=== PATIENT | female | born 1945 | race Caucasian/White ===

== ENCOUNTER 2018-01-30 16:10 | Emergency (ER) | payer MEDICARE ==
[2018-01-30 19:31] LABS: ABS Basophils 0.1 10^3/ul (0-0.2); ABS Eosinophils 0.2 10^3/ul (0-0.6); ABS Lymphocytes 2.8 10^3/ul (1.0-4.8); ABS Monocytes 0.6 10^3/ul (0-0.8); ABS Neutrophils 5.5 10^3/ul (1.5-7.7); ABS Nucleated RBC 0 10^3/ul; Eosinophil % 1.7 % (0-6); Hematocrit 34 % (35-47); Hemoglobin 11.7 g/dl (12.0-16.0); Lymphocyte % 30.6 % (25-47); Mean Corpuscular HGB Conc 35 g/dl (31-36); Mean Corpuscular Hemoglobin 31 pg (27-31); Mean Corpuscular Volume 88 fL (80-97); Mean Platelet Volume 7 um3 (7.4-10.4); Nucleated Red Blood Cells % 0; Platelet Count 387 10^3/ul (150-450); Red Blood Count 3.82 10^6/ul (4.0-5.4); Red Cell Distribution Width 14 % (10.5-15); White Blood Count 9.1 10^3/ul (3.5-10.8)
[2018-01-30 19:48] LABS: EGFR Non-African American 32.2 (>60)
[2018-01-30] MEDS ORDERED: NS 0.9% 1000 ML* 1,000 ML IV SCH (20:45)
[2018-01-30 21:04] LABS: Urine Appearance Clear; Urine Blood Negative (Negative); Urine Color Yellow; Urine Ketones Negative (Negative); Urine Protein Negative (Negative); Urine Specific Gravity 1.009 (1.010-1.030); Urine Urobilinogen Negative (Negative)
--- NOTE | 2018-01-30 21:16 | RAD ---
Indication: Epigastric pain. 2 views of the chest including dual energy PA views demonstrates no mediastinal shift. Heart is of normal size and configuration. Lung baker appear clear. IMPRESSION: No active cardiopulmonary disease is noted.
--- NOTE | 2018-01-30 21:37 | RAD ---
Indication: Right upper quadrant pain. Real-time sonography of the right upper quadrant was performed. The liver is normal in size. The liver measures 18.0 cm in length with no focal lesions or intrahepatic ductal dilatation noted. The gallbladder demonstrates 2.1 cm gallstone. No pericholecystic fluid or wall thickening is identified. The common duct measures up to 4 mm. The right kidney measures 9.5 x 4.6 x 3.9 cm with no hydronephrosis. The pancreas demonstrates no mass or pancreatic ductal dilatation. Aorta and inferior vena cava are unremarkable. IMPRESSION: Cholelithiasis without biliary ductal dilatation.
--- NOTE | 2018-01-30 22:28 | ED ---
Iker Avery Stephanie, scribed for Denis Santiago MD on 01/30/18 at 1919 . Abdominal Pain/Female - HPI Summary HPI Summary: The pt is a 72 y/o F presenting to the ED with c/o RUQ pain that began on . Symptoms include nausea and chills. The pt states her abd pain feels like squeezing. The pt denies fever and SOB. - History of Current Complaint Chief Complaint: EDAbdPain Stated Complaint: ABD PAIN Time Seen by Provider: 01/30/18 19:14 Hx Obtained From: Patient Hx Last Menstrual Period: N/A ?: No Onset/Duration: Gradual Onset Timing: Intermittent Episode Lasting Pain Intensity: 2 Pain Scale Used: 0-10 Numeric Location: Discrete At: RUQ Radiates: No Character: Other: - squeezing Aggravating Factor(s): Nothing Alleviating Factor(s): Nothing Associated Signs and Symptoms: Positive: Nausea, Other: - chills, Negative: SOB. Negative: Fever Allergies/Adverse Reactions: Allergies Allergy/AdvReac Type Severity Reaction Status Date / Time Iodinated Contrast- Oral and Allergy Swelling Verified 01/01/18 12:46 IV Dye Of Face,Lips,& Throat Home Medications: Home Medications Amlodipine/Atorvastatin [Amlodipine Besylate/Atorv 10-10 mg] 1 tab PO DAILY 05/14 [History Confirmed 01/30/18] Carvedilol TAB* [Coreg TAB*] 3.125 mg PO BID 01/30/18 [History Confirmed ] Dulaglutide (NF) [Trulicity (NF)] 0.75 mg SUBCUT WEEKLY 01/30/18 [History Confirmed 01/30/18] Fluticasone/Vilanterol MDI(NF) [Breo Ellipta MDI (NF)] 1 puff INH DAILY [History Confirmed 01/30/18] Quinapril/Hydrochlorothiazide [Quinapril/Hydrochlorothia 20-25 mg] 1 tab PO DAILY 01/30/18 [History Confirmed 01/30/18] PMH/Surg Hx/FS Hx/Imm Hx Endocrine/Hematology History: Reports: Hx Diabetes - type 2 Denies: Hx Thyroid Disease Cardiovascular History: Reports: Hx Hypertension Denies: Hx Pacemaker/ICD Respiratory History: Reports: Hx Asthma Denies: Hx Chronic Obstructive Pulmonary Disease (COPD) GI History: Denies: Hx Ulcer History: Denies: Hx Renal Disease Sensory History: Denies: Hx Hearing Aid Psychiatric History: Denies: Hx Panic Disorder - Surgical History Surgery Procedure, Year, and Place: tubal ligatiuon 1970. CATARACT RIGHT EYE Infectious Disease History: No Infectious Disease History: Denies: Hx Hepatitis, Hx Human Immunodeficiency Virus (HIV), Traveled Outside the [place] in Last 30 Days - Family History Known Family History: Positive: Hypertension, Diabetes - Social History Occupation: Retired Lives: Alone Alcohol Use: Rare Substance Use Type: Reports: None Smoking Status (MU): Never Smoked Tobacco Review of Systems Positive: Chills. Negative: Fever Negative: Shortness Of Breath Positive: Abdominal Pain, Nausea All Other Systems Reviewed And Are Negative: Yes Physical Exam - Summary Physical Exam Summary: Appearance: Well-appearing, Well-nourished Skin: Warm, Dry, No rash Eyes: Normal, PERRL, EOMI, sclera anicteric ENT: Normal Neck: Supple, nontender Respiratory: Clear to auscultation Cardiovascular: S1, S2, no murmur, no rub, no gallop Abdomen: Soft, RUQ tenderness, no organomegaly Bowel sounds: Present Musculoskeletal: Normal, Strength/ROM Intact, no edema, pulses symmetrical Neurological: Normal, A&Ox3, cranial nerves II-XII WNL, follows commands, gait not tested, sensation intact to pin and light touch Psychiatric: affect normal, behavior appropriate, dressed appropriately, judgment intact Triage Information Reviewed: Yes Vital Signs On Initial Exam: Initial Vitals Temp Pulse Resp BP Pulse Ox 99.2 F 95 18 197/73 97 01/30/18 16:12 01/30/18 16:12 01/30/18 16:12 01/30/18 16:12 01/30/18 16:12 Vital Signs Reviewed: Yes Diagnostics - Vital Signs Vital Signs Temp Pulse Resp BP Pulse Ox 01/30/18 19:04 98.1 F 109 20 172/70 95 01/30/18 16:12 99.2 F 95 18 197/73 97 - Laboratory Result Diagrams: 01/30/18 19:21 01/30/18 19:21 Lab Statement: Any lab studies that have been ordered have been reviewed, and results considered in the medical decision making process. - Radiology CXR Xray Interpretation: No Acute Changes Radiology Interpretation Completed By: Radiologist - No active cardiopulmonary disease is noted. ED physician has reviewed this imaging report and agrees. - EKG 19:23 Cardiac Rate: NL EKG Rhythm: Sinus Rhythm - [address] Segment: Normal Ectopy: None EKG Interpretation: Low voltage - Additional Comments Diagnostic Additional Comments: US Gallbladder reveals: Cholelithiasis without biliary ductal dilatation. ED physician has reviewed this imaging report and agrees. Abdominal Pain Fem Course/Dx - Course Course Of Treatment: No additional pain while in the ED. No N/V. ED physician explained to the pt the nature of her illness and referred her to Dr. Rivero. - Diagnoses Provider Diagnoses: Symptomatic cholelithiasis Discharge - Discharge Plan Condition: Good Disposition: HOME Discharge Disposition Comment: discharge to home Patient Education Materials: Biliary Colic (ED), Gallstones (ED), Acute Nausea and Vomiting (ED) Referrals: Pasha Barrera MD [Primary Care Provider] - Dean Rivero MD [Medical Doctor] - 1 Week The documentation as recorded by the Iker murdock Stephanie accurately reflects the service I personally performed and the decisions made by me, Denis Santiago MD.
[2018-01-30 23:03] VITALS: BP 152/63
[2018-01-30] MEDS ORDERED: nitroGLYCERIN DRIP* 25,000 MCG/250 ML BTL ONE (23:56)
== END 2018-01-30 23:13 | disposition home or self-care (01) ==
LOC: ED 16:10
DX: K80.80 Other cholelithiasis without obstruction (principal); R11.0 Nausea; R68.83 Chills (without fever); E11.8 Type 2 diabetes mellitus with unspecified complications; Z79.4 Long term (current) use of insulin; I10 Essential (primary) hypertension; J45.909 Unspecified asthma, uncomplicated; Z91.041 Radiographic dye allergy status
CPT/HCPCS: 36415; 71046; 76705; 80053; 81003; 81015; 83690; 85025; 87086; 93005; 96360; 99284

== ENCOUNTER 2018-05-23 08:41 | Day surgery (SDC) | payer MEDICARE ==
[~2018-05-23 08:41] MED LIST: Buffered Lidocaine 0.9% SYRIN* 5 ML/SYR SYRINGE INTRADERM ONE
[2018-05-23] MEDS ORDERED: Phenylephrine 2.5% OPTH.SOL* 2 ML BTL ONE (10:58)
[2018-05-23] MEDS ORDERED: Proparacaine 0.5% OPHTH.SOL* 15 ML BTL ONE (10:58)
[2018-05-23] MEDS ORDERED: Lidocaine 1%* 5 ML VIAL ONE (10:58)
[2018-05-23] MEDS ORDERED: Cyclopentolate 1% OPTH.SOL* 2 ML BTL ONE (10:58)
[2018-05-23] MEDS ORDERED: Neomycin/Polymy/Dex OPTH.SUSP* MAXITROL 0.1% 5 ML ONE (10:58)
[2018-05-23] MEDS ORDERED: Lidocaine 2% EPI 1:200000 MPF*10-20 ML VIAL ONE (10:58)
[2018-05-23] MEDS ORDERED: acetaZOLAMIDE TAB* 250 MG ONE (10:58)
[2018-05-23] MEDS ORDERED: Ketorolac 0.5% OPHTH (NF) 0.5 % 5 ML BTL ONE (10:58)
[2018-05-23] MEDS ORDERED: Povidone Iodine 5% OPTH* 30 ML BTL ONE (10:58)
[2018-05-23] MEDS ORDERED: Lidocaine 2% MPF* 2 ML VIAL ONE (10:59)
[2018-05-23] MEDS ORDERED: Propofol* 10 MG/ML 20 ML BTL IV PUSH ONE (10:59)
[2018-05-23] MEDS ORDERED: hydrALAZINE IV* 20 MG/ML VIAL ONE (11:14)
[2018-05-23 11:32] VITALS: BP 146/53
--- NOTE | 2018-05-23 11:56 | OP ---
DATE OF OPERATION: 05/23/2018. DATE OF : 1945. SURGEON: Hasmukh Smalls M.D. PREOPERATIVE DIAGNOSIS: Cataract left eye. POSTOPERATIVE DIAGNOSIS: Cataract left eye. OPERATIVE PROCEDURE: Extracapsular cataract extraction with intraocular lens implant left eye. PROCEDURE: The patient was brought to the operating room after being given 1/2% Alcaine with epineph rine drops in the preoperative area. The eye was prepped and draped in the usual sterile fashion. S terile drape and eyelid speculum were placed. Again, topical 1/2% Alcaine with epinephrine was given . A paracentesis incision was made at the 3 o'clock position with the No.75 blade. Clear cornea inc ision 2.2 x 2.2-mm was created at the 6 o'clock position starting at the anterior limbus using the 2. 2-mm keratome. The anterior chamber was irrigated with 0.4 mL of 1% non-preservative intracameral li docaine and filled with DisCoVisc. A capsulorrhexis was completed using the cystotome and the Utrata forceps. Hydrodissection was performed with balanced salt solution. The lens nucleus was removed wi th the Phacoemulsification handpiece without incident. Cortex was removed with the irrigation-aspira tion handpiece. The capsular bag was re-inflated using DisCoVisc and an SN60WF 21.5 implant was inse rted with the shooter. The irrigation-aspiration handpiece was used to remove all residual DisCoVisc . The eye was refilled with balanced salt solution and the wound checked and found to be watertight. Topical Maxitrol drops were given. [id number]/[facility] #: [id number]
== END 2018-05-23 11:47 | disposition home or self-care (01) ==
LOC: OREAST 08:41
PROVIDERS: ATTEND Specialist
DX: H25.812 Combined forms of age-related cataract, left eye (principal); E11.3293 Type 2 diabetes mellitus with mild nonproliferative diabetic retinopathy without macular edema, bilateral; Z79.84 Long term (current) use of oral hypoglycemic drugs; Z79.4 Long term (current) use of insulin; H26.491 Other secondary cataract, right eye; E03.9 Hypothyroidism, unspecified; I10 Essential (primary) hypertension; E78.5 Hyperlipidemia, unspecified; D46.9 Myelodysplastic syndrome, unspecified
CPT/HCPCS: A9270-GY; J0360; J2704; V2632

== ENCOUNTER 2020-03-05 12:53 | Emergency (ER) | payer MEDICARE, OTHER ==
--- OUTSIDE RECORDS SUMMARY | 2020-03-05 13:15 | XMS REPORT | Summary of Care ---
:1945 Author Organization [facility] Address [address] [facility] [place] [address] Care Team Providers Name Role Phone Pasha Barrera Primary Care Provider Hasmukh Smalls MD Primary Organ Pipe Voicer/Insert Molding Operator Amirah Gibbs RN Signallamp Termination Clerk Unavailable Reason for Visit Reason Comments Fall on Tues, stepped off a scale and foot turned causing the fall in the bathroom, then last night left leg gave out and pt fell again ([facility] came but pt was not taken to ER) Encounter Details Date Type Department Care Team Description 03/05/2020 Office Visit [place] Chantal Walters, Foot pain, left ( Primary Dx); Practice [facility] Hip pain, acute, left; [address] [facility] Uncomplicated asthma, unspecified asthma severity, unspecified whether persistent [place], [place] [id number] [place] [address] [phone] Allergies Active Allergy Reactions Severity Noted Date Comments Ct Dye Swelling 04/17/2008 Dulaglutide Rash, GI Reaction, 03/06/2018 Caused severe abdominal Swelling pain documented as of this encounter (statuses as of 03/05/2020) Medications Medication Sig Dispensed Refills Start End Status Date Date TYLENOL PO Take 1-2 Tabs by 0 Active mouth NEEDED. [id number]-[id number] Take 1 Tab by 0 Active INC PO mouth EVERY MORNING. BLOOD GLUCOSE TEST 1. Brand:free style freedom 100 5 01/07/20 Active STRIPS 2. Dx:250.00 10 STRPIndications: 3. non-Insulin dependent Diabetes mellitus 4. Test Blood Glucose 1 time(s) A DAY type II Ascorbic Acid Take 1 Tab by 0 Active (VITAMIN C PO) mouth EVERY MORNING. Cyanocobalamin Take 1 Tab by 0 Active (VITAMIN B 12 PO) mouth THREE TIMES PER WEEK. Cholecalciferol Take 1 Tab by 0 Active (VITAMIN D) 2000 mouth DAILY. units Oral Tab PROAIR HFA 108 (90 inhale 2 puffs by 8.5 g 5 04/15/20 Active Base) MCG/ACT mouth four times a 19 Inhalation Aero day Soln BD PEN NEEDLE LIZ use as directed 100 Each 3 06/11/20 Active U/F 32G X 4 MM Does 19 not apply Misc meclizine Take 1 Tab by 45 Tab 0 07/18/20 Active (ANTIVERT) 25 MG mouth THREE TIMES 19 Oral Tab DAILY NEEDED for dizziness/vertigo. torsemide (DEMADEX) Take 1 Tab by 90 Tab 0 09/16/20 Active 10 MG Oral Tab mouth DAILY 19 NEEDED (edema). triamcinolone Apply to affected 80 g 0 10/21/20 Active (KENALOG,ARISTOCORT area on legs 2 x a 19 ) 0.1 % Apply day externally Cream Insulin Glargine inject 30 units 30 mL 0 10/21/20 Active (BASAGLAR KWIKPEN) subcutaneously 19 100 UNIT/ML once daily at Subcutaneous bedtime Solution Pen-injector albuterol HFA INHALE 2 PUFFS BY 54 g 0 11/22/20 Active (VENTOLIN) 108 (90 MOUTH FOUR TIMES A 19 Base) MCG/ACT DAY Inhalation Aero Soln levothyroxine TAKE 1 TABLET BY 90 Tab 0 12/10/19 Active (SYNTHROID\\UNITHROI MOUTH BEFORE 20 D) 100 MCG Oral Tab BREAKFAST sitagliptin Take 1 Tab by 90 Tab 0 12/30/19 Active (JANUVIA) 50 MG mouth DAILY. 20 Oral Tab carvedilol (COREG) Take 1 Tab by 180 Tab 0 02/10/20 Active 12.5 MG Oral Tab mouth TWICE DAILY. 20 quinapril Take 1 Tab by 90 Tab 0 02/10/20 Active (ACCUPRIL) 20 MG mouth DAILY. 20 Oral Tab atorvastatin Take 1 Tab by 90 Tab 3 02/10/20 Active (LIPITOR) 10 MG mouth DAILY. 20 Oral Tab Insulin NPH Inject 20 Units 30 mL 0 02/10/20 Active Isophane & Regular beneath the skin 20 (HUMULIN 70/30 EVERY MORNING. KWIKPEN) (70-30) 100 UNIT/ML Subcutaneous Suspension Pen-injector hydrALAZINE Take 1 Tab by 270 Tab 0 02/10/20 Active (APRESOLINE) 25 MG mouth TWICE DAILY. 20 Oral Tab glipiZIDE Take 1 Tab by 180 Tab 0 02/12/20 Active (GLUCOTROL) 10 MG mouth TWICE DAILY. 20 Oral Tab Glucose Blood (ONE 1 Each by In Vitro 100 Strip 5 02/12/20 Active TOUCH ULTRA TEST route TWICE DAILY. 20 STRIPS) In Vitro E11.65 last OV Strip 02/10/20 Lancets Does not by Does not apply 100 Each 3 02/12/20 Active apply Misc route TWICE DAILY. 20 Brand:One Touch Ultra Two Dx E11.65 Last visit 02/10/20 Fluticasone Take 1 INHL by 3 Each 2 03/05/20 Active Furoate-Vilanterol inhalation DAILY. 20 (BREO ELLIPTA) 100-25 MCG/INH Inhalation AEROSOL POWDER, BREATH ACTIVATEDIndication s: Uncomplicated asthma, unspecified asthma severity, unspecified whether persistent Fluticasone Take 1 INHL by 3 Each 2 01/04/20 Discontinued Furoate-Vilanterol inhalation DAILY. 19 020 (Reorder) (BREO ELLIPTA) 100-25 MCG/INH Inhalation AEROSOL POWDER, BREATH ACTIVATEDIndication s: Uncomplicated asthma, unspecified asthma severity, unspecified whether persistent documented as of this encounter (statuses as of 03/05/2020) Active Problems Problem Noted Date Tachy-steffany syndrome 05/10/2018 Moderate persistent asthma without complication 04/05/2017 Peripheral edema 04/02/2017 Diabetes mellitus, type 2 04/17/2008 Myelodysplasia (myelodysplastic syndrome) 04/17/2008 Hypertension 04/17/2008 Hypothyroid 04/17/2008 Hyperlipidemia 04/17/2008 Heart murmur 04/17/2008 Back pain 04/17/2008 Leg pain 04/17/2008 History of Bilateral Cataracts 04/17/2008 Asthma 04/17/2008 documented as of this encounter (statuses as of 03/05/2020) Resolved Problems Problem Noted Date Resolved Date Type 2 diabetes mellitus with diabetic polyneuropathy, 12/25/2018 12/25/2018 without long-term current use of insulin BMI 50.0-59.9, adult 06/06/2011 10/21/2019 Overview: This patient's BMI has been calculated and is above average, and BMI management plan is completed. General patient education discussion including: weight loss link to reduction of risk factors for car diac and other diseases, importance of long-term maintenance treatment in weight loss and is managed by diet by portions and quality. Only bike when back not bother. Morbid obesity 04/17/2008 04/04/2012 Edema 04/17/2008 04/02/2017 Allergic asthma 04/17/2008 05/15/2012 documented as of this encounter (statuses as of 03/05/2020) Immunizations Name Administration Dates Next Due Influenza (IM) Preservative Free 09/10/2013, 11/13/2012, 10/03/2012, 09/27/2011 Influenza Vaccine 65 Yrs + 10/21/2019 Influenza Vaccine High Dose 09/24/2018, 08/22/2017, 09/30/2016, 09/14/2015, 09/25/2014 Influenza Vaccine Whole 11/06/2007 Influenza Virus Vaccine Pres Free 6-35 09/01/2010 Months PNEUMOCOCCAL POLYSACCHARIDE VACCINE 10/03/2012, 11/06/2007 Pneumococcal Conjugate(13 Valent) 09/30/2016 documented as of this encounter Social History Tobacco Use Types Packs/Day Years Used Date Never Smoker Smokeless Tobacco: Never Used Tobacco Cessation: Counseling Given: No Alcohol Use Drinks/Week oz/Week Comments No on very rare occasion Sex Assigned at Date Recorded Not on file documented as of this encounter Last Filed Vital Signs Vital Sign Reading Time Taken Comments Blood Pressure 172/78 03/05/2020 11:24 AM EDT Pulse 67 03/05/2020 11:24 AM EDT Temperature 36.6 03/05/2020 11:08 AM EDT C (97.8 F) Respiratory Rate - - Oxygen Saturation 98% 03/05/2020 11:24 AM EDT Inhaled Oxygen Concentration - - Weight 117.9 kg (260 lb) 03/05/2020 11:08 AM EDT Height 157.5 cm (5' 2") 03/05/2020 11:08 AM EDT Body Mass Index 47.55 03/05/2020 11:08 AM EDT documented in this encounter Patient Instructions Patient InstructionsChantal Craig PA-C - 03/05/2020 11:20 AM EDT1. XRay done -- radiologist reviewed, no fractures. Positive soft tissue swelling 2. Xray done -- radiologist reviewed, no fractures. Discussed with patient, daughter and . Because of extensive swelling and bruising, recommend going to ER for evaluation and treatment Concerned about compartment syndrome Daughter says she will drive patient to [facility] [place], gave her CD of xrays 3. Escribed refill of breo inhaler More than 50% of the physician/patient and or family encounter was spent with counseling and coordination of care. Total visit time involved was 45 minutes. documented in this encounter Progress Notes Chantal Craig PA-C - 03/05/2020 11:20 AM EDT PATIENT: Lissa Spears : 1945 DATE OF SERVICE: 03/05/2020 REFERRING PRACTITIONER: Self-Referred PRIMARY CARE PROVIDER: Pasha Barrera Accompanied by Bruce and daughter CHIEF COMPLAINT: Chief Complaint Patient presents with ? Fall on Tues, stepped off a scale and foot turned causing the fall in the bathroom , then last night left leg gave out and pt fell again ([facility] came but pt was not taken to ER) Subjective HISTORY OF PRESENT ILLNESS: Lissa Spears is a 74-y.o. female who presents with left foot pain x 2 days Says 2 days ago at home slipped getting off scale, left foot twisted, fell, could not get up -- called [facility] ambulance for lift assistance Foot was swollen, applied ice, elevated, took OTC Tylenol Last night getting into bed left leg gave out fell nto left front Ambulance was called again, assisted her up, did not bring to ER Today left foot and toes are swollen, bruise, hurts to stand and left hip/leg hurts Denies fever, chills, nausea, vomiting, diarrhea, chest pains, SOB Also asking for refill of breo inhaler for asthma Past Medical History: Diagnosis Date ? Adenomatous polyp of colon 2014 3 years. 2018 adenoma x2 ? Asthma 04/17/2008 ? Back pain 04/17/2008 ? BMI 50.0-59.9, adult ([facility]) 06/06/2011 ? Diabetes mellitus type II 04/17/2008 minimal retinopathy -04/08, 05/16/14 ? Diverticulosis ? Edema 04/17/2008 ? Hemorrhoid ? History of Bilateral Cataracts 04/17/2008 right eye out ? Hyperlipidemia 04/17/2008 ? Hypertension 04/17/2008 ? Hypothyroid 04/17/2008 ? Leg pain 04/17/2008 right knee ? Morbid obesity (HCC) 04/17/2008 ? Murmur cardiac 2010 echo [facility] ? Myelodysplasia (myelodysplastic syndrome) (HCC) 04/17/2008 ? AFIA (obstructive sleep apnea) mild ? Osteopenia 2014 Frax 8.3 and 1.1 ? Postmenopausal ? Vitamin D deficiency Past Surgical History: Procedure Laterality Date ? BILAT TUBAL DESTRUCT NEC 1970 ? CARDIAC STRESS TEST NEC 2011 equivocal likely negative ? CATARACT EXTRACTION NEC 08/22/2007 Right eye with intraocular lens placement. Dr. Smalls ? DENTAL OPERATION NEC all upper teeth extracted ? MAMMOGRAPHY NEC 03/15/11 normal [facility] Family History Problem Relation Age of Onset ? Emphysema Father ? Asthma Father ? Breast Cancer Paternal Grandmother Current Outpatient Medications Medication Sig ? albuterol HFA (VENTOLIN) 108 (90 Base) MCG/ACT Inhalation Aero Soln INHALE 2 PUFFS BY MOUTH FOUR TIMES A DAY ? Ascorbic Acid (VITAMIN C PO) Take 1 Tab by mouth EVERY MORNING. ? atorvastatin (LIPITOR) 10 MG Oral Tab Take 1 Tab by mouth DAILY. ? BD PEN NEEDLE LIZ U/F 32G X 4 MM Does not apply Misc use as directed ? BLOOD GLUCOSE TEST STRIPS STRP 1. Brand:free style freedom 2. Dx:250.00 3. non-Insulin dependent 4. Test Blood Glucose 1 time(s) A DAY ? GQHAEIS-[id number] PO Take 1 Tab by mouth EVERY MORNING. ? carvedilol (COREG) 12.5 MG Oral Tab Take 1 Tab by mouth TWICE DAILY. ? Cholecalciferol (VITAMIN D) 2000 units Oral Tab Take 1 Tab by mouth DAILY. ? Cyanocobalamin (VITAMIN B 12 PO) Take 1 Tab by mouth THREE TIMES PER WEEK. ? Fluticasone Furoate-Vilanterol (BREO ELLIPTA) 100-25 MCG/INH Inhalation AEROSOL POWDER, BREATH ACTIVATED Take 1 INHL by inhalation DAILY. (Patient taking differently: Take 1 INHL by inhalation DAILY NEEDED.) ? glipiZIDE (GLUCOTROL) 10 MG Oral Tab Take 1 Tab by mouth TWICE DAILY. ? Glucose Blood (ONE TOUCH ULTRA TEST STRIPS) In Vitro Strip 1 Each by In Vitro route TWICE DAILY. E11.65 last OV 02/10/20 ? hydrALAZINE (APRESOLINE) 25 MG Oral Tab Take 1 Tab by mouth TWICE DAILY. ? Insulin Glargine (BASAGLAR KWIKPEN) 100 UNIT/ML Subcutaneous Solution Pen-injector inject 30units subcutaneously once daily at bedtime ? Insulin NPH Isophane & Regular (HUMULIN 70/30 KWIKPEN) (70-30) 100 UNIT/ML Subcutaneous Suspension Pen-injector Inject 20 Units beneath the skin EVERY MORNING. ? Lancets Does not apply Misc by Does not apply route TWICE DAILY. Brand: One Touch Ultra Two Dx E11.65 Last visit 02/10/20 ? levothyroxine (SYNTHROID\\UNITHROID) 100 MCG Oral Tab TAKE 1 TABLET BY MOUTH BEFORE BREAKFAST ? meclizine (ANTIVERT) 25 MG Oral Tab Take 1 Tab by mouth THREE TIMES DAILY NEEDED for dizziness/vertigo. ? PROAIR HFA 108 (90 Base) MCG/ACT Inhalation Aero Soln inhale 2 puffs by mouth four times a day ? quinapril (ACCUPRIL) 20 MG Oral Tab Take 1 Tab by mouth DAILY. ? sitagliptin (JANUVIA) 50 MG Oral Tab Take 1 Tab by mouth DAILY. ? torsemide (DEMADEX) 10 MG Oral Tab Take 1 Tab by mouth DAILY NEEDED ( edema). ? triamcinolone (KENALOG,ARISTOCORT) 0.1 % Apply externally Cream Apply to affected area on legs 2 x a day ? TYLENOL PO Take 1-2 Tabs by mouth NEEDED. No current facility-administered medications for this visit. Allergies Allergen Reactions ? Contrast Dye [Ct Dye] Swelling ? Trulicity [Dulaglutide] Rash, GI Reaction and Swelling Caused severe abdominal pain Social History Socioeconomic History ? Marital status: Spouse name: Not on file ? Number of children: Not on file ? Years of education: Not on file ? Highest education level: Not on file Occupational History ? Not on file Social Needs ? Financial resource strain: Not on file ? Food insecurity Worry: Not on file Inability: Not on file ? Transportation needs Medical: Not on file Non-medical: Not on file Tobacco Use ? Smoking status: Never Smoker ? Smokeless tobacco: Never Used Substance and Sexual Activity ? Alcohol use: No Comment: on very rare occasion ? Drug use: No ? Sexual activity: Not on file Lifestyle ? Physical activity Days per week: Not on file Minutes per session: Not on file ? Stress: Not on file Relationships ? Social connections Talks on phone: Not on file Gets together: Not on file Attends latter day service: Not on file Active member of club or organization: Not on file Attends meetings of clubs or organizations: Not on file Relationship status: Not on file ? Intimate partner violence Fear of current or ex partner: Not on file Emotionally abused: Not on file Physically abused: Not on file Forced sexual activity: Not on file Other Topics Concern ? 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 REVIEW OF SYSTEMS: Skin: negative skin lesions Eyes: negative visual blurring Ears/Nose/Throat: negative rhinorrhea or sore throat Respiratory: negative cough. Positive asthma Cardiovascular: negative chest pain Gastrointestinal: negative abdominal pain, constipation, diarrhea, nausea or vomiting Genitourinary: negative burning on urination, dysuria or vaginal discharge Musculoskeletal: positive arthritis/joint pain. Left foot pain, swollen, bruised. Left hip/leg pain Neurologic: negative numbness or tingling of feet or hands Psychiatric: negative anxiety Hematologic/Lymphatic/Immunologic: negative allergies Endocrine: positive hypothyroidism, Diabetes II Objective PHYSICAL EXAMINATION: VITALS: BP (!) 172/78 | Pulse 67 | Temp 97.8 F (36.6 C) | Ht 5' 2" ( 1.575 m) | Wt 260 lb (117.9 kg) | SpO2 98% | BMI 47.55 kg/m Body mass index is 47.55 kg/m. General appearance - alert, moderate distress, cooperative, oriented times 3, morbidly obese, in wheelchair Skin - Skin color, texture, turgor normal. No rashes or lesions. Head - Normocephalic. No masses, lesions, tenderness or abnormalities Eyes - conjunctivae/corneas clear. PERRL, EOM's intact. Neck - Neck supple, FROM. No cervical or supraclavicular adenopathy. Left foot - Pain with palpation at base of great toe and 2nd, 3rd toe. Extensive edema and bruising.Can move great toe, can not move other toes Left hip lateral upper leg is tender, no bruising Pain with weight bearing Lungs - Good diaphragmatic excursion. Lungs clear. Chest symmetrical. Normal breath sounds. Heart - RRR. No murmurs, clicks or gallops. . . IMPRESSION: ICD-9-CM ICD-10-CM 1. Foot pain, left 729.5 M79.672 XR FOOT MIN 3 VIEWS LEFT (STANDARD) 2. Hip pain, acute, left 719.45 M25.552 XR HIP 2 VIEWS UNILAT W/PELVIS LEFT 3. Uncomplicated asthma, unspecified asthma severity, unspecified whether persistent 493.90 J45.909Fluticasone Furoate-Vilanterol (BREO ELLIPTA) 100-25 MCG/INH Inhalation AEROSOL POWDER, BREATH ACTIVATED Plan PLAN: 1. XRay done -- radiologist reviewed, no fractures. Positive soft tissue swelling 2. Xray done -- radiologist reviewed, no fractures. Discussed with patient, daughter and . Because of extensive swelling and bruising, recommend going to ER for evaluation and treatment Concerned about compartment syndrome Daughter says she will drive patient to [facility] [place], gave her CD of xrays 3. Escribed refill of breo inhaler More than 50% of the physician/patient and or family encounter was spent with counseling and coordination of care. Total visit time involved was 45 minutes. Author: Chantal Craig PA-C 03/05/2020 11:18 documented in this encounter Plan of Treatment Date Type Specialty Care Team Description 05/18/2020 Lab Internal Medicine Health Maintenance Due Date Last Done Comments DTaP/Tdap/Td Vaccines (1 - 1954 Tdap) HIV SCREENING 1958 ZOSTER IMMUNIZATION SERIES 1993 (1 of 2) MEDICARE ANNUAL WELLNESS 09/30/2017 09/30/2016, 03/08/2011 VISIT FOOT EXAM 12/25/2019 12/25/2018, 12/25/2018, 12/14/2017, Additional history exists HEMOGLOBIN A1C 04/20/2020 01/21/2020, 10/15/2019, 07/11/2019, Additional history exists Diabetic Eye Exam 07/01/2020 07/01/2019, 07/01/2019, 07/01/2019, Additional history exists FALL RISK ASSESSMENT 10/21/2020 10/21/2019, 10/21/2019 DEPRESSION SCREENING 02/09/2021 02/10/2020, 08/22/2017 OSTEOPOROSIS SCREENING 04/07/2025 04/07/2015, 04/10/2012, 09/27/2011, Additional history exists PNEUMOCOCCAL 65+YRS Completed 09/30/2016, 10/03/2012, 11/06/2007 INFLUENZA VACCINE Completed 10/21/2019, 09/24/2018, 08/22/2017, Additional history exists HEPATITIS A IMMUNIZATION Aged Out No longer eligible SERIES based on patient's age to complete this topic HPV IMMUNIZATION SERIES Aged Out No longer eligible based on patient's age to complete this topic MENINGOCOCCAL VACCINE IMM Aged Out No longer eligible based on patient's age to complete this topic documented as of this encounter Goals Goal Patient Goal Associated Recent Patient-Stated? Author Type Problems Progress Blood Pressure Blood Pressure 172/78 No Holly, < 150/90 (03/05/2020 MD Pasha 11:24 AM EDT) Note: This is an individualized treatment (blood pressure) goal for Lissa Spears: Displayed above (on the left) is your goal for blood pressure control. Your most recent blood pressure is also shown above, on the right. You should try to achieve blood pressures that are lower than your goal listed above (on the left). Depression screen (PHQ-9) Depression 15 (08/22/2017 11:19 AM Pasha Camp MD total score < 5 EDT) Note: This is an individualized treatment (depression) goal for Lissa Spears: Displayed above is your goal for a depression screening (PHQ-9) score that would indicate good control of your depression. Glycohemoglobin A1c < 7.0 Diabetes 9.0 (01/21/2020 9:06 AM No Pasha Barrera MD EST) Note: This is an individualized treatment (diabetes control, HgbA1C) goal for Lissa Spears: Displayed above is your progress towards your HgbA1C goal. Your goal is shown above (on the left); your most recent HgbA1C is shown on the right. Note that lower numbers are better. Weight loss vs. 18 mo Lifestyle 12 (03/05/2020 11:08 AM EDT) Pasha Camp MD max (lbs) >= 20 Note: This is an individualized lifestyle goal for Lissa Spears: Your body mass index (BMI) is more than 30. You should lose weight. A reasonable starting goal is to lose 20 pounds. Displayed above is how many pounds you have lost thus far towards your 20 pound weight loss goal. Keep immunizations current Lifestyle No Pasha Barrera MD Note: This is an individualized lifestyle goal for Lissa Spears: Please be sure to keep up-to-date on recommended immunizations. For example, this would include a yearly influenza vaccine. Immunization status can be seen by looking at the Health Maintenance sections of your [facility], Plan of Care, and any After Visit Summaries. Keep a regular sleep schedule Lifestyle No Pasha Barrera MD Note: This is an individualized lifestyle goal for Lissa Spears: Please maintain a regular sleep schedule. This may help with some symptoms of depression. Take all prescribed medications as directed Self-management No Pasha Barrera MD Note: This is an individualized self-management goal for Lissa Spears: Please take all prescribed medications as directed. 1. Do not skip doses. If you cannot afford your medications, talk with your doctor. 2. Use a pill reminder system such as a pill box if needed. Your pharmacist can help you with this. 3. Contact your Pharmacy 5 days before your medication runs out. If you cannot take your medications for any reasons, talk with your doctor. 4. Please bring all of your medication bottles and inhalers (or a list of all your medications/inhalers) with you to every visit. Potential barriers to meeting all of your care plan goals will continue to be addressed on an ongoing basis. documented as of this encounter Results XR HIP 2 VIEWS UNILAT W/PELVIS LEFT (03/05/2020 11:58 AM EDT) Specimen Impressions Performed At No acute findings. Calcific tendinitis at the bilateral greater trochanters. Signed by Janet Israel MD, MFA on 03/05/2020 12:19 PM Narrative Performed At Procedure(s): XR HIP 2 VIEWS UNILAT W/PELVIS LEFT Date of service: 03/05/2020 11:36 AM Provided clinical information: 74 years, Female, "fell at home" Procedure and materials: 2 images of the left hip and 2 AP views of the pelvis were obtained. Comparison studies: 07/25/2008. Procedure Note Interface, Rad Results - 03/05/2020 12:21 PM EDT Procedure(s): XR HIP 2 VIEWS UNILAT W/PELVIS LEFT Date of service: 03/05/2020 11:36 AM Provided clinical information: 74 years, Female, "fell at home" Procedure and materials: 2 images of the left hip and 2 AP views of the pelvis were obtained. Comparison studies: 07/25/2008. IMPRESSION No acute findings. Calcific tendinitis at the bilateral greater trochanters. Signed by Janet Israel MD, ARMINDA on 03/05/2020 12:19 PM XR FOOT MIN 3 VIEWS LEFT (STANDARD) (03/05/2020 11:57 AM EDT) Specimen Impressions Performed At No fracture. Profound soft tissue swelling, predominantly over the dorsum of the forefoot. Vascular calcifications. Signed by Janet Israel MD, MFA on 03/05/2020 12:19 PM Narrative Performed At Procedure(s): XR FOOT MIN 3 VIEWS LEFT (STANDARD) Date of service: 03/05/2020 11:36 AM Provided clinical information: 74 years, Female, "fell at home" Procedure and materials: 3 images of the left foot were obtained. Comparison studies: None. Procedure Note Interface, Rad Results - 03/05/2020 12:21 PM EDT Procedure(s): XR FOOT MIN 3 VIEWS LEFT (STANDARD) Date of service: 03/05/2020 11:36 AM Provided clinical information: 74 years, Female, "fell at home" Procedure and materials: 3 images of the left foot were obtained. Comparison studies: None. IMPRESSION No fracture. Profound soft tissue swelling, predominantly over the dorsum of the forefoot. Vascular calcifications. Signed by Janet Israel MD, MFA on 03/05/2020 12:19 PM documented in this encounter Visit Diagnoses Diagnosis Foot pain, left Pain in limb Hip pain, acute, left Uncomplicated asthma, unspecified asthma severity, unspecified whether persistent documented in this encounter Insurance Payer Benefit Plan / Subscriber ID Effective Dates Phone Address Type Group [facility] [id number] Effective for Medicare TODAYS OPTIONS TODAYS OPTIONS all dates Advantage Guarantor Name Account Type Relation to Date of Phone Billing Patient Address Lissa Spears Personal/Family 1945 [facility] [place] (Home) [place], [place] [phone] (Work) documented as of this encounter Advance Directives Type Date Recorded 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
--- OUTSIDE RECORDS SUMMARY | 2020-03-05 13:15 | XMS REPORT | Continuity of Care Document ---
:1945 External Reference #:[id number] Author Name Macie Peters MD (transmitted by agent of provider Belén Alston) Address [address], [address] [place] [address] Care Team Providers Name Role Phone Pasha Barrera MD - Family Medicine Care Team Information Sap Security Consultant [phone] Problems Description No Information Available Social History Type Date Description Comments Sex Unknown ETOH Use Rarely consumes alcohol Tobacco Use Start: Unknown Patient has never smoked Smoking Status Reviewed: 11/11/19 Patient has never smoked Allergies, Adverse Reactions, Alerts Active Allergies Reaction Severity Comments Date Contrast Dye 01/31/2018 Trulicity Severe 11/11/2019 Medications Active Medications SIG Qnty Indications Ordering Provider Date Levothyroxine Sodium 1 by mouth every Unknown 100mcg day Tablets Glipizide 1 by mouth twice Unknown 10mg Tablets daily Carvedilol 1 by mouth twice Unknown 12.5mg Tablets a day Xsnyrpv-Whvrkljia-Axxy once a day Unknown Tablets Basaglar Kwikpen inject 30 units Unknown 100Unit/ML once a day Solution Pen-Inject Atorvastatin Calcium 1 by mouth every Unknown 10mg day Tablets Proair HFA 2 puffs every 4 Unknown 108(90Base) hours as needed mcg/Act Aerosol Albuterol Sulfate HFA 2 puffs 4 times Unknown daily as needed 108(90Base) mcg/Act Aerosol Vitamin D 1 by mouth once a Unknown 2000Unit Tablets day Vitamin C once a day Unknown Vitamin B 12 1 tab by mouth Unknown every morning Tylenol 2 tablets every 4 Unknown 325mg Capsules hours as needed for pain Triamcinolone Cream apply to affected Unknown 0.1% area on legs 2x a day Torsemide 1 by mouth every Unknown 10mg Tablets day as needed Januvia 1 by mouth every Unknown 50mg Tablets day Zantac 150 Maximum 1 by mouth twice Unknown Strength a day 150mg Tablets Quinapril HCL 1 by mouth every Unknown 20mg Tablets day Meclizine HCL 1 tablet every 3 Unknown 25mg Tablets times daily as needed for vertigo Quinapril-Hydrochloroth 1 by mouth every Unknown iazide day 20-25mg Tablets Immunizations Description No Information Available Vital Signs Date Vital Result Comment 11/11/2019 2:20pm Height 59 inches 4'11" Weight 260.00 lb Heart Rate 60 /min BP Systolic 154 mmHg BP Diastolic 86 mmHg BMI (Body Mass Index) 52.5 kg/m2 02/01/2018 11:24am Height 59 inches 4'11" Weight 236.00 lb Heart Rate 78 /min BP Systolic 144 mmHg BP Diastolic 88 mmHg Respiratory Rate 18 /min Body Temperature 97.0 F BMI (Body Mass Index) 47.7 kg/m2 Results Test Acquired Date Facility Test Result H/L Range Note Vitamin B12 11/11/2019 [facility] Vitamin B12 348 pg/mL Normal 180-914 1 And Folate [address] [place] [address] [phone] Folic Acid (Folate) 13.51 ng/mL >3.99 1 Normal Range 180 to 914 Indeterminate Range 145 to 180 Deficient Range <145 Procedures Date Code Description Status 02/12/2020 17963 Nerve Conduction 13+ Studies Completed 02/12/2020 87589 Needle Electromyography Complete, Five Or More Muscles Completed Studied Medical Devices Description No Information Available Encounters Type Date Location Provider Dx Diagnosis Office Visit 11/11/2019 [facility] Dhruv E11.40 Type 2 diabetes 2:[facility] Reyes M.D. mellitus with diabetic neuropathy, unsp R42 Dizziness and giddiness G56.03 Carpal tunnel syndrome, bilateral upper limbs R20.2 Paresthesia of skin Assessments Date Code Description Provider 02/12/2020 E11.42 Type 2 diabetes mellitus with diabetic Macie Peters MD polyneuropathy 02/12/2020 M54.12 Radiculopathy, cervical region Macie Peters MD 11/11/2019 E11.40 Type 2 diabetes mellitus with diabetic Jhoan Reyes M.D. neuropathy, unspecified 11/11/2019 R42 Dizziness and giddiness Jhoan Reyes M.D. 11/11/2019 G56.03 Carpal tunnel syndrome, bilateral upper Jhoan Reyes M.D. limbs 11/11/2019 R20.2 Paresthesia of skin Jhoan Reyes M.D. Plan of Treatment 11/11/2019 - Jhoan Reyes M.D.E11.40 Type 2 diabetes mellitus with diabetic neuropathy, [id number] Dizziness and giddinessFollow up:PRNG56.03 Carpal tunnel syndrome, bilateral upper fjnikW38.2 Paresthesia of skin Functional Status Description No Information Available Mental Status Description No Information Available Referrals Description No Information Available
--- OUTSIDE RECORDS SUMMARY | 2020-03-05 13:15 | XMS REPORT | Summary of Care ---
:1945 Author Organization [facility] Address [address] [facility] [place] [address] Care Team Providers Name Role Phone Pasha Barrera Primary Care Provider Hasmukh Smalls MD Primary Support Manager/Pipeline Welder Amirah Gibbs RN Signallamp Bike Assembler Unavailable Reason for Visit Reason Comments Follow Up pt presents for follow up with labs Encounter Details Date Type Department Care Team Description 02/10/2020 Office Visit [facility] Pasha Barrera MD Type 2 diabetes mellitus with diabetic polyneuropathy, with long-term current use of insulin (HCC) (Primary Dx); Practice [address] [facility] Essential hypertension; [address] [place] [address] Pain of right lower extremity; [place] [address] Hypothyroidism, unspecified type [phone] Allergies Active Allergy Reactions Severity Noted Date Comments Ct Dye Swelling 04/17/2008 Dulaglutide Rash, GI Reaction, 03/06/2018 Caused severe abdominal Swelling pain documented as of this encounter (statuses as of 02/15/2020) Medications Medication Sig Dispensed Refills Start Date End Date Status TYLENOL PO Take 1-2 Tabs by 0 Active mouth NEEDED. OBQIRYK-SXLATUCXP-SZTG Take 1 Tab by 0 Active PO mouth EVERY MORNING. BLOOD GLUCOSE TEST 1. Brand:free style freedom 100 5 01/07/2010 Active STRIPS 2. Dx:250.00 STRPIndications: 3. non-Insulin dependent Diabetes mellitus type 4. Test Blood Glucose 1 time(s) A DAY II Ascorbic Acid (VITAMIN Take 1 Tab by 0 Active C PO) mouth EVERY MORNING. Cyanocobalamin Take 1 Tab by 0 Active (VITAMIN B 12 PO) mouth THREE TIMES PER WEEK. Fluticasone Take 1 INHL by 3 Each 2 01/04/2019 Active Furoate-Vilanterol inhalation DAILY. (BREO ELLIPTA) 100-25 MCG/INH Inhalation AEROSOL POWDER, BREATH ACTIVATEDIndications: Uncomplicated asthma, unspecified asthma severity, unspecified whether persistent Additional Information Patient taking differently: 1 INHL Inhalation DAILY PRN, Reported on 2018 11:08 AM Cholecalciferol Take 1 Tab by mouth 0 Active (VITAMIN D) 2000 units DAILY. Oral Tab PROAIR HFA 108 (90 inhale 2 puffs by 8.5 g 5 04/15/ Active Base) MCG/ACT mouth four times a 2019 Inhalation Aero Soln day BD PEN NEEDLE LIZ U/F use as directed 100 Each 3 06/11/ Active 32G X 4 MM Does not 2019 apply Misc meclizine (ANTIVERT) Take 1 Tab by mouth 45 Tab 0 07/18/ Active 25 MG Oral Tab THREE TIMES DAILY 2019 NEEDED for dizziness/vertigo. torsemide (DEMADEX) 10 Take 1 Tab by mouth 90 Tab 0 09/16/ Active MG Oral Tab DAILY NEEDED 2018 (edema). triamcinolone Apply to affected 80 g 0 10/21/ Active (KENALOG,ARISTOCORT) area on legs 2 x a 2019 0.1 % Apply externally day Cream Insulin Glargine inject 30 units 30 mL 0 10/21/ Active (BASAGLAR KWIKPEN) 100 subcutaneously once 2019 UNIT/ML Subcutaneous daily at bedtime Solution Pen-injector albuterol HFA INHALE 2 PUFFS BY 54 g 0 11/22/ Active (VENTOLIN) 108 (90 MOUTH FOUR TIMES A 2019 Base) MCG/ACT DAY Inhalation Aero Soln levothyroxine TAKE 1 TABLET BY 90 Tab 0 12/10/ Active (SYNTHROID\\UNITHROID) MOUTH BEFORE 2020 100 MCG Oral Tab BREAKFAST sitagliptin (JANUVIA) Take 1 Tab by mouth 90 Tab 0 12/30/ Active 50 MG Oral Tab DAILY. 2020 carvedilol (COREG) Take 1 Tab by mouth 180 Tab 0 02/09/ Active 12.5 MG Oral Tab TWICE DAILY. 2020 quinapril (ACCUPRIL) Take 1 Tab by mouth 90 Tab 0 16/ Active 20 MG Oral Tab DAILY. 2020 atorvastatin (LIPITOR) Take 1 Tab by mouth 90 Tab 3 02/09/ Active 10 MG Oral Tab DAILY. 2019 Insulin NPH Isophane & Inject 20 Units 30 mL 0 02/09/ Active Regular (HUMULIN 70/30 beneath the skin 2019 KWIKPEN) (70-30) 100 EVERY MORNING. UNIT/ML Subcutaneous Suspension Pen-injector hydrALAZINE Take 1 Tab by mouth 270 Tab 0 02/09/ Active (APRESOLINE) 25 MG TWICE DAILY. 2019 Oral Tab Glucose Blood In Vitro 1 Each by In Vitro 100 Bottle 5 02/11/ Discontinued Strip route TWICE DAILY. 2018 2019 Dx: E11.65, last OV 12/25/18 Brand - one touch ultra 2, ranitidine (ZANTAC) Take 1 Tab by mouth 60 Tab 0 04/25/ 02/09/ Discontinued (No 150 MG Oral Tab TWICE DAILY. 2018 2019 longer clinically indicated) atorvastatin (LIPITOR) take 1 tablet by 90 Tab 3 02/09/ Discontinued 10 MG Oral Tab mouth daily 2018 2019 (Reorder) Lancets Does not apply by Does not apply 100 Each 3 02/11/ Discontinued Misc route TWICE DAILY. 2018 2019 (Reorder) Brand:One Touch Ultra Two Dx E11.65 Last visit glipiZIDE (GLUCOTROL) TAKE 1 TABLET BY 180 Tab 0 02/10/ Discontinued 10 MG Oral Tab MOUTH TWICE A DAY. 2018 2019 (Reorder) carvedilol (COREG) TAKE 1 TABLET BY 180 Tab 0 02/09/ Discontinued 12.5 MG Oral Tab MOUTH TWICE A DAY. 2018 2019 (Reorder) quinapril (ACCUPRIL) Take 1 Tab by mouth 90 Tab 0 02/09/ Discontinued 20 MG Oral Tab DAILY. 2019 2019 (Reorder) documented as of this encounter (statuses as of 02/15/2020) Active Problems Problem Noted Date Tachy-steffany syndrome 05/10/2018 Moderate persistent asthma without complication 04/05/2017 Peripheral edema 04/02/2017 Diabetes mellitus, type 2 04/17/2008 Myelodysplasia (myelodysplastic syndrome) 04/17/2008 Hypertension 04/17/2008 Hypothyroid 04/17/2008 Hyperlipidemia 04/17/2008 Heart murmur 04/17/2008 Back pain 04/17/2008 Leg pain 04/17/2008 History of Bilateral Cataracts 04/17/2008 Asthma 04/17/2008 documented as of this encounter (statuses as of 02/15/2020) Resolved Problems Problem Noted Date Resolved Date [...] as of this encounter (statuses as of 02/15/2020) Immunizations Name Administration Dates Next Due Influenza [...] Date Never Smoker Smokeless Tobacco: Never Used Alcohol Use Drinks/Week oz/Week Comments No on very rare occasion Sex Assigned at Date Recorded Not on file documented as of this encounter Last Filed Vital Signs Vital Sign Reading Time Taken Comments Blood Pressure 152/84 02/10/2020 2:44 PM EDT Pulse 56 02/10/2020 2:44 PM EDT Temperature - - Respiratory Rate - - Oxygen Saturation 96% 02/10/2020 2:44 PM EDT Inhaled Oxygen Concentration - - Weight 123.4 kg (272 lb) 02/10/2020 2:44 PM EDT Height 157.5 cm (5' 2") 02/10/2020 2:44 PM EDT Body Mass Index 49.75 02/10/2020 2:44 PM EDT documented in this encounter Patient Instructions Patient InstructionsPasha Barrera MD - 02/10/2020 2:40 PM EDTGive a shot of 70/ 30 insulin in the AM Skip the glipizide then Keep taking glipizide for the evening meal Add hydralazine two time a day for BP follow up labs in 3 monthsElectronically signed by Pasha Barrera MD at 2019 3:13 PM EDT documented in this encounter Progress Notes Pasha Barrera MD - 02/10/2020 2:40 PM EDT PATIENT: Lissa Spears : 1945 DATE OF SERVICE: 02/10/2020 CHIEF COMPLAINT: Chief Complaint Patient presents with ? Follow Up pt presents for follow up with labs Subjective HISTORY OF PRESENT ILLNESS: Lissa Spears is a 74-y.o. female. in for follow up of diabetes mellitus. She is checking their sugars2* times a day. They average *100 fasting Bedtime averages 180 hour hours after eating but her a1c came back at 9 In for follow up of hypertension. . Had side effects to medicines as had bradycardia and then CKD . Also norvasc made edema worse per Dr Stack. She put her on demadex but patient just takes 2 x a week due to CKD Her recent Cr little better at 1.9 She is still symptomatic in her legs. She is going to have more studies. [facility] Past Medical History: Diagnosis Date ? Adenomatous polyp of colon 2014 3 years. 2018 adenoma x2 ? Asthma 04/17/2008 ? Back pain 04/17/2008 ? BMI 50.0-59.9, adult ([facility]) 06/06/2011 ? Diabetes mellitus type II 04/17/2008 minimal retinopathy -04/08, 05/16/14 ? Diverticulosis ? Edema 04/17/2008 ? Hemorrhoid ? History of Bilateral Cataracts 04/17/2008 right eye out ? Hyperlipidemia 04/17/2008 ? Hypertension 04/17/2008 ? Hypothyroid 04/17/2008 ? Leg pain 04/17/2008 right knee ? Morbid obesity ([facility]) 04/17/2008 ? Murmur cardiac 2010 echo [facility] ? Myelodysplasia (myelodysplastic syndrome) ([facility]) 04/17/2008 ? AFIA (obstructive sleep apnea) mild ? Osteopenia 2014 Frax 8.3 and 1.1 ? Postmenopausal ? Vitamin D deficiency Family History Problem Relation Age of Onset [...] GLUCOSE TEST STRIPS STRP 1. Brand:free style [employer] 2. Dx:250.00 3. non-Insulin dependent 4. Test Blood Glucose 1 time(s) A DAY ? 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 Over the last 2 weeks, have you been feeling down, depressed, anxious, or hopeless?: 1 Over the past 2 weeks, have you felt little interest or pleasure in doing things ?: 0 REVIEW OF SYSTEMS: ROS albuterol is 3 x a week Objective PHYSICAL EXAM: VITALS: BP (!) 152/84 (BP Location: Left arm, Patient Position: Sitting) | Pulse 56 | Ht 5' 2" (1.575 m) | Wt 272 lb (123.4 kg) | SpO2 96% | BMI 49.75 kg/m Body mass index is 49.75 kg/m. Physical Exam Constitutional: Appearance: She is obese. She is not ill-appearing. Cardiovascular: Rate and Rhythm: Normal rate. Pulmonary: Effort: Pulmonary effort is normal. No respiratory distress. Breath sounds: Normal breath sounds. Musculoskeletal: Comments: Big legs Tender over right trochanter Neurological: General: No focal deficit present. Psychiatric: Mood and Affect: Mood normal. ASSESSMENT / IMPRESSION: ICD-9-CM ICD-10-CM 1. Type 2 diabetes mellitus with diabetic polyneuropathy, with long-term current use of insulin (HCC) Patient Instructions Give a shot of 70/30 insulin in the AM Skip the glipizide then Keep taking glipizide for the evening meal Add hydralazine two time a day for BP follow up labs in 3 months Verify lantus AM or PM 250.60 E11.42 357.2 Z79.4 V58.67 2. Essential hypertension not to goal Try hydralazne as should not affect kidneys or edema etc 401.9 I10 3. Pain of right lower extremity if specialist cant figure it out , and I dont think there is much to work with due to her obesity, will consider injection for bursitis but I dont that explains everything 729.5 M79.604 4 hypothyroid needs check next time Plan * Author: Pasha Barrera MD 02/15/2020 20:07 documented in this encounter Plan of Treatment Date Type Specialty Care Team Description 03/11/2020 Office Visit Nephrology Rose Stack MD [address] [place] [address] [phone] 05/18/2020 Lab Internal Medicine Name Type Priority Associated Diagnoses Order Schedule GLYCOHEMOGLOBIN A1C Lab Routine Type 2 diabetes mellitus Expected: 2019 with diabetic (Approximate), polyneuropathy, with Expires: 02/14/2021 long-term current use of insulin (HCC) BASIC METABOLIC PANEL Lab Routine Essential hypertension Expected: 2019 (Approximate), Expires: 02/14/2021 THYROID STIMULATING HORMONE Lab Routine Hypothyroidism, Expected: 2019 unspecified type (Approximate), Expires: 02/14/2021 Health Maintenance Due Date Last Done Comments [...] Type Problems Progress Blood Pressure Blood Pressure 152/84 No Holly, < 150/90 (02/10/2020 MD Pasha 2:44 PM EDT) Note: This is an individualized treatment [...] are better. Weight loss vs. 18 mo max Lifestyle 0 (02/10/2020 2:44 PM EDT) No Pasha Barrera MD (lbs) >= 20 Note: This is an [...] basis. documented as of this encounter Results Not on filedocumented in this encounter Visit Diagnoses Diagnosis Type 2 diabetes mellitus with diabetic polyneuropathy, with long-term current use of insulin (HCC) Essential hypertension Unspecified essential hypertension Pain of right lower extremity Hypothyroidism, unspecified type documented in this encounter Insurance Payer Benefit Plan / Subscriber ID Effective Dates Phone Address Type Group [facility] [id number] Effective for Medicare TODAYS OPTIONS TODAYS OPTIONS all dates Advantage Guarantor Name Account Type Relation to Date of Phone Billing Patient Address [place] Personal/Family 1945 [phone] [address] (Home) [place], [place] [phone] [id number] (Work) documented as of this encounter Advance Directives Type Date Recorded Patient Criminal Intelligence Specialist 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
--- NOTE | 2020-03-05 14:25 | ED ---
Lower Extremity - HPI Summary HPI Summary: Patient is a 74 y/o F presenting to the ED for a chief complaint of left foot pain and edema after a fall that occurred on 03/03/20. Patient has ecchymosis of the left foot. She also notes having bilateral LE edema for the last 10 years. No aggravating or alleviating factors are reported. On the morning of 08/16, patient had another fall trying to get out of her bed. Patient had an x- ray of the foot on 03/05/20 at [facility] with negative findings. She denies taking blood thinners. PMHx of CAD or CHF is denied. She notes taking diuretics. - History of Current Complaint Chief Complaint: EDExtremityLower Stated Complaint: LEFT FOOT INJURY PER PT Time Seen by Provider: 03/05/20 14:16 Hx Obtained From: Patient Hx Last Menstrual Period: N/A Mechanism Of Injury: Fall From A Standing Position Onset of Pain: Immediate Onset/Duration: Still Present Severity Initially: Severe Severity Currently: Moderate Pain Intensity: 7 Pain Scale Used: 0-10 Numeric Timing: Constant Location: Is Discrete @ - Left foot Associated Signs And Symptoms: Positive: Swelling - Left foot and bilateral LE, Bruising - Left foot Aggravating Factor(s): Nothing Alleviating Factor(s): Nothing - Allergies/Home Medications Allergies/Adverse Reactions: Allergies Allergy/AdvReac Type Severity Reaction Status Date / Time dulaglutide [From [facility]] Allergy Hives/Diff. Verified 05/23/18 09:19 Breathing/I tching Iodinated Contrast Media Allergy Swelling Verified 05/23/18 09:19 [Iodinated Contrast- Oral Of and IV Dye] Face,Lips,& Throat Home Medications: Home Medications Albuterol HFA INHALER* [Ventolin HFA Inhaler*] 1 puff INH Q4H PRN 06/12/16 [ History Confirmed 06/18/18] Amlodipine/Atorvastatin [Amlodipine Besylate/Atorv 10-10 mg] 1 tab PO QPM [History Confirmed 06/18/18] Fluticasone/Vilanterol MDI(NF) [Breo Ellipta MDI (NF)] 1 puff INH QAM 01/30/18 [ History Confirmed 06/18/18] Quinapril/Hydrochlorothiazide [Quinapril/Hydrochlorothia 20-25 mg] 1 tab PO QAM 01/30/18 [History Confirmed 06/18/18] Levothyroxine TAB* [Synthroid TAB*] 100 mcg PO QAM 05/16/18 [History Confirmed 06/18/18] Ropinirole TAB* [Requip TAB*] 1 mg PO BEDTIME 05/16/18 [History Confirmed ] Insulin Glargine,Hum.rec.anlog [Basaglar Kwikpen] 0 unit SC QPM 06/18/18 [ History Confirmed 06/18/18] Meclizine TAB* [Antivert 12.5 TAB*] 25 mg PO TID PRN 06/18/18 [History Confirmed 06/18/18] Torsemide 10 mg PO DAILY 06/18/18 [History Confirmed 06/18/18] glipiZIDE [Glipizide] 10 mg PO BID 06/18/18 [History Confirmed 06/18/18] PMH/Surg Hx/FS Hx/Imm Hx Previously Healthy: Yes Endocrine/Hematology History: Reports: Hx Diabetes - type 2, ORAL MEDS & LANTUS INSULINE AT BEDTIME, JUST STARTED, Hx Thyroid Disease - ON DAILY MEDS Comment Only: Hx Bone Marrow Disease - MILODYSPLASIA FOLLOWED BY DR CALVILLO Cardiovascular History: Reports: Hx Hypertension - ON MEDS DAILY Denies: Hx Congestive Heart Failure, Hx Coronary Artery Disease, Hx Pacemaker /ICD Respiratory History: Reports: Hx Asthma - DAILY & RESUE INHALERS, USUALLY NEEDS PRN 2-3 X WEEK Denies: Hx Chronic Obstructive Pulmonary Disease (COPD) GI History: Denies: Hx Ulcer History: Denies: Hx Renal Disease Musculoskeletal History: Reports: Hx Arthritis - LOWER SPINE Sensory History: Reports: Hx Cataracts - LEFT EYE, Hx Contacts or Glasses - GLASSES Denies: Hx Hearing Aid Opthamlomology History: Reports: Hx Cataracts - LEFT EYE, Hx Contacts or Glasses - GLASSES Psychiatric History: Denies: Hx Panic Disorder - Surgical History Surgical History: Yes Surgery Procedure, Year, and Place: 1970 BILATERAL tubal ligatiuon/APPENDECTOMY [facility] [place]. 2008 CATARACT RIGHT EYE Hx Anesthesia Reactions: No Infectious Disease History: No Infectious Disease History: Denies: Hx Hepatitis, Hx Human Immunodeficiency Virus (HIV), Traveled Outside the [place] in Last 30 Days - Family History Known Family History: Positive: Hypertension, Diabetes - Social History Occupation: Retired Lives: With Family Alcohol Use: Rare Alcohol Amount: 1 DRINK A YEAR, MAYBE Hx Substance Use: No Substance Use Type: Reports: None Hx Tobacco Use: No Smoking Status (MU): Never Smoked Tobacco Have You Smoked in the Last Year: No Review of Systems Positive: Myalgia - Left foot, Edema - Left foot and bilateral LE Positive: Bruising - Left foot All Other Systems Reviewed And Are Negative: Yes Physical Exam - Summary Physical Exam Summary: Constitutional: Well-developed, Obese, Alert. (-) Distressed Skin: Warm, Dry HENT: Normocephalic; Atraumatic Eyes: Conjunctiva normal Neck: Musculoskeletal ROM normal neck. (-) JVD, (-) Stridor, (-) Tracheal deviation Cardio: Rhythm regular, rate normal, Heart sounds normal; Intact distal pulses; The pedal pulses are 2+ and symmetric. Radial pulses are 2+ and symmetric. (-) Murmur Pulmonary/Chest wall: Effort normal. (-) Respiratory distress, (-) Wheezes, (-) Rales Abd: Soft, (-) tenderness, (-) Distension, (-) Guarding, (-) Rebound Musculoskeletal: Bilateral LE edema, left foot has soft tissue swelling/ hematoma on the dorsal aspect of the foot, no tenderness over the ankle, neurovascular is intact. Lymph: (-) Cervical adenopathy Neuro: Alert, Oriented x3 Psych: Mood and affect Normal Triage Information Reviewed: Yes Vital Signs On Initial Exam: Initial Vitals Temp Pulse Resp BP Pulse Ox 96.8 F 64 18 173/80 98 03/05/20 12:55 03/05/20 12:55 03/05/20 12:55 03/05/20 12:55 03/05/20 12:55 Vital Signs Reviewed: Yes Procedures - Sedation Patient Received Moderate/Deep Sedation with Procedure: No Diagnostics - Vital Signs Vital Signs Temp Pulse Resp BP Pulse Ox 03/05/20 12:55 96.8 F 64 18 173/80 98 - Laboratory Lab Statement: Any lab studies that have been ordered have been reviewed, and results considered in the medical decision making process. Lower Extremity Course/Dx - Course Course Of Treatment: Patient is a 74 y/o F presenting to the ED for a chief complaint of left foot pain and edema after a fall that occurred on 03/03/20. Patient has ecchymosis of the left foot. She also notes having bilateral LE edema for the last 10 years. On the morning of 03/05/20, patient had another fall trying to get out of her bed. Patient had an x-ray of the foot on 03/05/20 at [facility] with negative findings. She denies taking blood thinners. PMHx of CAD or CHF is denied. She notes taking diuretics. On exam, obese, bilateral LE edema, left foot has soft tissue swelling/hematoma on the dorsal aspect of the foot, no tenderness over the ankle, neurovascular is intact. Patient will be discharged with a diagnosis of foot hematoma. Follow up with PCP in 3-5 days. - Diagnoses Provider Diagnoses: Hematoma of left foot Discharge ED - Sign-Out/Discharge Documenting (check all that apply): Patient Departure - Discharge - Discharge Plan Condition: Stable Disposition: HOME Patient Education Materials: Foot Contusion (ED) Referrals: Pasha Barrera MD [Primary Care Provider] - 3 Days Additional Instructions: RETURN TO THE EMERGENCY DEPARTMENT FOR CHANGING OR WORSENING SYMPTOMS. Follow up with your primary care physician in 3-5 days. - Billing Disposition and Condition Condition: STABLE Disposition: Home - Attestation Statements Document Initiated by Thalia: Yes Documenting Scribe: Jackelin Llanos Provider For Whom Thalia is Documenting (Include Credential): Bj Jerry DO Scribe Attestation: Jackelin Avery scribed for Bj Jerry DO on 03/05/20 at 1527. Scribe Documentation Reviewed: Yes Provider Attestation: The documentation as recorded by the Jackelin murdock accurately reflects the service I personally performed and the decisions made by , Bj Jerry DO Status of Scribyen Document: Viewed
[2020-03-05 15:09] VITALS: BP 000/00
== END 2020-03-05 15:05 | disposition home or self-care (01) ==
LOC: ED 12:53
DX: S90.32XA Contusion of left foot, initial encounter (principal); M79.672 Pain in left foot; R60.0 Localized edema; W19.XXXA Unspecified fall, initial encounter; Y92.9 Unspecified place or not applicable
CPT/HCPCS: 99281

== ENCOUNTER 2022-07-30 00:58 | Inpatient (IN) ==
[2022-07-30 01:38] LABS: ABS Basophils 0.1 10^3/ul (0-0.2); ABS Eosinophils 0.6 10^3/ul (0-0.6); ABS Lymphocytes 1.5 10^3/ul (1.0-4.8); ABS Monocytes 0.9 10^3/ul (0-0.8); ABS Neutrophils 8.6 10^3/ul (1.5-7.7); Eosinophil % 5.1 %; Hematocrit 33 % (35-47); Hemoglobin 10.8 g/dL (12.0-16.0); Mean Corpuscular HGB Conc 32 g/dL (31-36); Mean Corpuscular Hemoglobin 29 pg (27-31); Mean Corpuscular Volume 90 fL (80-97); Mean Platelet Volume 7.7 fL (7.4-10.4); Platelet Count 322 10^3/uL (150-450); Red Blood Count 3.73 10^6 /uL (3.70-4.87); Red Cell Distribution Width 16 % (10-15); White Blood Count 11.7 10^3/uL (3.5-10.8)
[2022-07-30 01:55] LABS: Albumin 3.7 g/dL (3.2-5.2); Total Bilirubin 0.8 mg/dL (0.2-1.0)
[2022-07-30 02:01] LABS: Albumin/Globulin Ratio 1.2 (1-3); Total Protein 6.7 g/dL (6.4-8.9); eGFR CKD-EPI 27.2 (>60)
[2022-07-30 02:20] LABS: Potassium 4.1 mmol/L (3.5-5.0)
[2022-07-30 03:08] LABS: High Sensitivity Troponin 1 Hr 13 pg/mL (<15)
[2022-07-30] MEDS ORDERED: hydrALAZINE 20 mg/ml 1 ML Vial IV IV SLOW PU ONE (04:49)
[2022-07-30 04:57] LABS: PCO2 Arterial 39 mmHg (35-45); PO2 Arterial 72 mmHg (80-100)
[2022-07-30] MEDS ORDERED: Albuterol HFA INHALER 8 gm MDI INH PRN (05:27)
[2022-07-30] MEDS ORDERED: Dextrose 50% Syringe 50 ml 25 GM/50 ML SYRINGE IV PUSH PRN (05:29)
[2022-07-30] MEDS ORDERED: Al Hydrox/Mg Hydrox/Simet LIQ 30 ML UDC PO PRN (05:40)
[2022-07-30] MEDS: Heparin 5000 UNITS/ML 1 mL VIAL SUBCUT SCH ×3 (07:42→21:17)
[2022-07-30] MEDS: methylPREDNISolone SOD SUCC 40 mg/ml 1 ml VIAL IV SCH ×3 (07:42→21:17)
[2022-07-30 09:05] LABS: Blood Urea Nitrogen 34 mg/dL (6-24); CO2 Carbon Dioxide 23 mmol/L (22-32); Calcium 9.7 mg/dL (8.6-10.3); Chloride 102 mmol/L (101-111); Glucose 212 mg/dL (70-100); Sodium 136 mmol/L (135-145); eGFR CKD-EPI 31.4 (>60)
[2022-07-30 09:14] LABS: Anion Gap 11 mmol/L (2-11)
[2022-07-30 09:29] LABS: C Reactive Protein 49.09 mg/L (<8.01)
[2022-07-30 17:18] LABS: Glucose Confirmatory 414 mg/dL (70-100)
[2022-07-30] MEDS: Mometasone/Formoter 100/5 MDI INH SCH (20:42)
[2022-07-30] MEDS ORDERED: Insulin GLARGINE 100 un/ml 10 ml VIAL SUBCUT SCH (21:00)
[2022-07-30] MEDS: Insulin GLARGINE 100 un/ml 10 ml VIAL SUBCUT SCH (21:16)
[2022-07-30 21:50] LABS: Glucose Confirmatory 465 mg/dL (70-100)
[2022-07-31] MEDS: Heparin 5000 UNITS/ML 1 mL VIAL SUBCUT SCH (05:18)
[2022-07-31] MEDS: methylPREDNISolone SOD SUCC 40 mg/ml 1 ml VIAL IV SCH ×2 (05:19→18:17)
[2022-07-31 06:01] LABS: Urine Appearance Clear; Urine Bilirubin Negative (Negative); Urine Blood Trace (Intact) (Negative); Urine Color Yellow; Urine Glucose 1+ (250mg/dL) (Negative); Urine Ketones Negative (Negative); Urine Nitrite Positive (Negative); Urine Protein Negative (Negative); Urine Urobilinogen 0.2 (Negative) (Negative)
[2022-07-31 06:15] LABS: Urine Bacteria 2+ (Absent); Urine Red Blood Cell Trace(0-2/hpf) (Absent); Urine Squamous Epithelial Cell Present (Absent); Urine White Blood Cell 3+(>20/hpf) (Absent)
[2022-07-31 06:20] LABS: ABS Lymphocytes 1.2 10^3/ul (1.0-4.8); ABS Monocytes 0.3 10^3/ul (0-0.8); ABS Neutrophils 9.2 10^3/ul (1.5-7.7); Hematocrit 35 % (35-47); Hemoglobin 11.5 g/dL (12.0-16.0); Mean Corpuscular HGB Conc 33 g/dL (31-36); Mean Corpuscular Hemoglobin 29 pg (27-31); Mean Corpuscular Volume 89 fL (80-97); Mean Platelet Volume 7.5 fL (7.4-10.4); Platelet Count 383 10^3/uL (150-450); Red Blood Count 3.92 10^6 /uL (3.70-4.87); Red Cell Distribution Width 15 % (10-15); White Blood Count 10.7 10^3/uL (3.5-10.8)
[2022-07-31 06:38] LABS: Calcium 9.9 mg/dL (8.6-10.3); Magnesium 1.8 mg/dL (1.9-2.7); Potassium 4.1 mmol/L (3.5-5.0)
[2022-07-31] MEDS ORDERED: Lactated Ringers 1000 ml BAG 1,000 ML IV ONE (07:03)
[2022-07-31] MEDS: Mometasone/Formoter 100/5 MDI INH SCH ×2 (07:34→19:21)
[2022-07-31] MEDS ORDERED: Magnesium Sulfate IV 1GM/100ML 1 GM/100 ML BAG IV ONE (07:39)
[2022-07-31] MEDS: cefTRIAXone 1 gm/50 mL D5W 1 GM/50 ML BAG IV SCH (09:37)
[2022-07-31] MEDS: Triamcinolone 0.025% OINT 15 GM TUBE TOPICAL SCH ×2 (10:14→21:47)
[2022-07-31 13:04] LABS: Glucose Confirmatory 418 mg/dL (70-100)
[2022-07-31] MEDS: Enoxaparin 40 MG/0.4 ML SYR SUBCUT SCH (13:26)
[2022-07-31 17:33] LABS: Glucose Confirmatory 466 mg/dL (70-100)
[2022-07-31] MEDS ORDERED: Dextrose 50% Syringe 50 ml 25 GM/50 ML SYRINGE IV PUSH PRN ×2 (17:59→22:27)
[2022-07-31] MEDS: Insulin GLARGINE 100 un/ml 10 ml VIAL SUBCUT SCH (21:48)
[2022-08-01] MEDS: methylPREDNISolone SOD SUCC 40 mg/ml 1 ml VIAL IV SCH (05:29)
[2022-08-01 06:51] LABS: ABS Lymphocytes 0.9 10^3/ul (1.0-4.8); ABS Monocytes 0.5 10^3/ul (0-0.8); Hematocrit 31 % (35-47); Hemoglobin 10.1 g/dL (12.0-16.0); Lymphocyte % 7.5 %; Mean Corpuscular HGB Conc 33 g/dL (31-36); Mean Corpuscular Hemoglobin 29 pg (27-31); Mean Corpuscular Volume 89 fL (80-97); Platelet Count 323 10^3/uL (150-450); Red Blood Count 3.46 10^6 /uL (3.70-4.87); Red Cell Distribution Width 16 % (10-15); White Blood Count 12.3 10^3/uL (3.5-10.8)
[2022-08-01 07:30] LABS: Calcium 9.2 mg/dL (8.6-10.3); Potassium 4.7 mmol/L (3.5-5.0); eGFR CKD-EPI 24.4 (>60)
[2022-08-01] MEDS: cefTRIAXone 1 gm/50 mL D5W 1 GM/50 ML BAG IV SCH ×2 (07:36→09:26)
[2022-08-01] MEDS: Mometasone/Formoter 100/5 MDI INH SCH ×2 (08:13→19:17)
[2022-08-01] MEDS: Triamcinolone 0.025% OINT 15 GM TUBE TOPICAL SCH ×2 (08:53→22:28)
[2022-08-01] MEDS ORDERED: Furosemide 20 mg/2 ml IV VIAL IV SLOW PU ONE (09:24)
[2022-08-01 12:14] LABS: Glucose Confirmatory 440 mg/dL (70-100)
[2022-08-01] MEDS: Enoxaparin 40 MG/0.4 ML SYR SUBCUT SCH (12:33)
[2022-08-01 15:01] LABS: Potassium 4.5 mmol/L (3.5-5.0); eGFR CKD-EPI 23.5 (>60)
[2022-08-01] MEDS ORDERED: Lactated Ringers 1000 ml BAG 1,000 ML IV ONE (17:35)
[2022-08-01 21:21] LABS: Calcium 9.4 mg/dL (8.6-10.3); Potassium 4.7 mmol/L (3.5-5.0); eGFR CKD-EPI 22.9 (>60)
[2022-08-01] MEDS: Insulin GLARGINE 100 un/ml 10 ml VIAL SUBCUT SCH (22:26)
[2022-08-02] MEDS: Heparin 5000 UNITS/ML 1 mL VIAL SUBCUT SCH ×3 (05:16→21:58)
[2022-08-02] MEDS: Mometasone/Formoter 100/5 MDI INH SCH ×2 (07:30→19:42)
[2022-08-02] MEDS: cefTRIAXone 1 gm/50 mL D5W 1 GM/50 ML BAG IV SCH (09:24)
[2022-08-02] MEDS: Triamcinolone 0.025% OINT 15 GM TUBE TOPICAL SCH ×2 (09:25→22:52)
[2022-08-02] MEDS ORDERED: Polyethylene Glycol 3350 17 GM PACKET PO PRN (11:02)
[2022-08-02 13:16] LABS: ABS Lymphocytes 0.8 10^3/ul (1.0-4.8); ABS Monocytes 0.4 10^3/ul (0-0.8); ABS Neutrophils 9.4 10^3/ul (1.5-7.7); Hematocrit 35 % (35-47); Hemoglobin 11.4 g/dL (12.0-16.0); Lymphocyte % 7.1 %; Mean Corpuscular HGB Conc 33 g/dL (31-36); Mean Corpuscular Hemoglobin 29 pg (27-31); Mean Corpuscular Volume 88 fL (80-97); Mean Platelet Volume 7.3 fL (7.4-10.4); Platelet Count 333 10^3/uL (150-450); Red Blood Count 3.96 10^6 /uL (3.70-4.87); Red Cell Distribution Width 16 % (10-15); White Blood Count 10.6 10^3/uL (3.5-10.8)
[2022-08-02 13:43] LABS: Calcium 9.3 mg/dL (8.6-10.3)
[2022-08-02 21:32] LABS: Glucose Confirmatory 403 mg/dL (70-100)
[2022-08-02] MEDS ORDERED: Dextrose 50% Syringe 50 ml 25 GM/50 ML SYRINGE IV PUSH PRN (21:58)
[2022-08-02] MEDS: Insulin GLARGINE 100 un/ml 10 ml VIAL SUBCUT SCH (21:59)
[2022-08-03 05:54] LABS: Calcium 9.3 mg/dL (8.6-10.3); Potassium 4.2 mmol/L (3.5-5.0); eGFR CKD-EPI 25.9 (>60)
[2022-08-03] MEDS: Heparin 5000 UNITS/ML 1 mL VIAL SUBCUT SCH ×2 (05:58→15:13)
[2022-08-03] MEDS: Mometasone/Formoter 100/5 MDI INH SCH (07:24)
[2022-08-03] MEDS: cefTRIAXone 1 gm/50 mL D5W 1 GM/50 ML BAG IV SCH (09:31)
[2022-08-03] MEDS: Triamcinolone 0.025% OINT 15 GM TUBE TOPICAL SCH (09:32)
[2022-08-03 11:26] VITALS: BP 120/56
== END 2022-08-03 15:10 | disposition home health service (06) | DRG 177 ==
LOC: ED 00:58 → SUATTDRO 05:40 → EDHOLD 05:40 → MED 12:21
PROVIDERS: ADMIT Internal Medicine; ATTEND Internal Medicine

== ENCOUNTER 2023-04-14 14:00 | Inpatient (IN) ==
[2023-04-14 16:09] LABS: ABS Basophils 0.1 10^3/uL (0.0-0.1); ABS Eosinophils 0.3 10^3/uL (0.0-0.5); ABS Lymphocytes 1.9 10^3/uL (1.0-4.8); ABS Monocytes 0.5 10^3/uL (0.0-0.9); ABS Neutrophils 6.3 10^3/uL (1.5-7.6); ABS Nucleated RBC 0.01 10^3/ul; Eosinophil % 3.8 %; Hematocrit 34.9 % (35-45); Hemoglobin 11.6 g/dL (11.5-14.3); Lymphocyte % 21.2 %; Mean Corpuscular Hemoglobin 29.5 pg (27-33); Mean Corpuscular Hgb Conc 33.2 g/dL (31-36); Mean Corpuscular Volume 88.8 fL (80-97); Mean Platelet Volume 7.3 fL (7.5-11.2); Nucleated Red Blood Cells % 0.1 /100 WBC (0.0-0.4); Platelet Count 348 10^3/uL (150-450); Red Blood Count 3.92 10^6/uL (3.63-4.92); Red Cell Distribution Width 15.3 % (12-17); White Blood Count 9.2 10^3/uL (3.8-11.8)
[2023-04-14 16:39] LABS: Albumin 3.7 g/dL (3.2-5.2); Albumin/Globulin Ratio 1.4 (1-3); C Reactive Protein 38.15 mg/L (<8.01); Calcium 9.8 mg/dL (8.6-10.3); Creatinine, Serum 1.58 mg/dL (0.51-0.95); Globulin 2.6 g/dL (2-4); Potassium 4.3 mmol/L (3.5-5.0); Total Bilirubin 0.7 mg/dL (0.2-1.0); Total Protein 6.3 g/dL (6.4-8.9); eGFR CKD-EPI 32.9 (>60)
[2023-04-14 17:45] LABS: High Sensitivity Troponin 1 Hr 148 pg/mL (<15)
[2023-04-14 20:40] LABS: High Sensitivity Troponin 3 Hr 983 pg/mL (<15)
[2023-04-14] MEDS ORDERED: Albuterol HFA INHALER 8 gm MDI INH ONE (21:08)
[2023-04-14] MEDS ORDERED: Albuterol HFA INHALER 8 gm MDI INH PRN (22:34)
[2023-04-14] MEDS ORDERED: Furosemide 40 mg/4 ml IV VIAL IV ONE (22:42)
[2023-04-14] MEDS ORDERED: Dextrose 50% Syringe 50 ml 25 GM/50 ML SYRINGE IV PUSH PRN (23:52)
[2023-04-15] MEDS: Amoxicillin/Clavul 875/125 TAB (Augmentin 875 tab) PO SCH ×3 (00:54→21:43)
[2023-04-15 05:28] LABS: ABS Basophils 0.1 10^3/uL (0.0-0.1); ABS Eosinophils 0.3 10^3/uL (0.0-0.5); ABS Lymphocytes 1.9 10^3/uL (1.0-4.8); ABS Monocytes 0.5 10^3/uL (0.0-0.9); ABS Neutrophils 6.4 10^3/uL (1.5-7.6); Eosinophil % 2.8 %; Hematocrit 31.8 % (35-45); Hemoglobin 10.7 g/dL (11.5-14.3); Lymphocyte % 21.1 %; Mean Corpuscular Hgb Conc 33.7 g/dL (31-36); Mean Corpuscular Volume 89.1 fL (80-97); Mean Platelet Volume 7.2 fL (7.5-11.2); Platelet Count 328 10^3/uL (150-450); Red Blood Count 3.57 10^6/uL (3.63-4.92); Red Cell Distribution Width 15.7 % (12-17); White Blood Count 9.2 10^3/uL (3.8-11.8)
[2023-04-15 05:31] LABS: INR 1.17 (0.88-1.18)
[2023-04-15] MEDS: Heparin 5000 UNITS/ML 1 mL VIAL SUBCUT SCH ×3 (05:34→21:43)
[2023-04-15 06:31] LABS: Calcium 9.4 mg/dL (8.6-10.3); Creatinine, Serum 1.69 mg/dL (0.51-0.95); HDL Cholesterol 27.4 mg/dL; Magnesium 1.9 mg/dL (1.9-2.7); Potassium 4.1 mmol/L (3.5-5.0); eGFR CKD-EPI 30.3 (>60)
[2023-04-15] MEDS ORDERED: Albuterol/Ipratropium NEB.SOL (2.5/0.5 MG) 3 ML NEB.SOLN INH PRN (12:11)
[2023-04-15] MEDS ORDERED: Magnesium Sulfate IV 3 GM in NS 0.9% 100 ml BAG 100 ML IVPB ONE (12:13)
[2023-04-15] MEDS ORDERED: Ondansetron 4 mg VIAL 2 MG/ML 2 ml VIAL IV PRN (12:36)
[2023-04-15 12:43] LABS: Ferritin 46.5 ng/mL (11-307)
[2023-04-15 12:47] LABS: Folate 15.68 ng/mL (5.90-24.80)
[2023-04-15 13:24] LABS: Hematocrit 31.8 % (35-45); Mean Corpuscular Hemoglobin 30.5 pg (27-33); Mean Corpuscular Hgb Conc 34.7 g/dL (31-36); Mean Corpuscular Volume 87.8 fL (80-97); Mean Platelet Volume 7.4 fL (7.5-11.2); Platelet Count 348 10^3/uL (150-450); Red Blood Count 3.62 10^6/uL (3.63-4.92); Red Cell Distribution Width 15.7 % (12-17); White Blood Count 8.6 10^3/uL (3.8-11.8)
[2023-04-15 13:39] LABS: Calcium 9.7 mg/dL (8.6-10.3); Creatinine, Serum 1.66 mg/dL (0.51-0.95); Magnesium 1.8 mg/dL (1.9-2.7); Phosphorus 2.7 mg/dL (2.5-5.0); Potassium 4.1 mmol/L (3.5-5.0)
[2023-04-15 14:10] LABS: High Sensitivity Troponin 1 Hr 900 pg/mL (<15)
[2023-04-15] MEDS: Albuterol/Ipratropium NEB.SOL (2.5/0.5 MG) 3 ML NEB.SOLN INH SCH ×2 (15:15→19:24)
[2023-04-15] MEDS ORDERED: Nitro 2% OINT (Nitroglycerin) 1 INCH/PAK TOPICAL ONE (18:06)
[2023-04-15 20:14] LABS: High Sensitivity Troponin 1 Hr 654 pg/mL (<15)
[2023-04-15] MEDS ORDERED: Insulin GLARGINE 100 un/ml 10 ml VIAL SUBCUT SCH (21:00)
[2023-04-16] MEDS ORDERED: Albuterol/Ipratropium NEB.SOL (2.5/0.5 MG) 3 ML NEB.SOLN INH SCH
[2023-04-16 06:15] LABS: ABS Lymphocytes 1.4 10^3/uL (1.0-4.8); ABS Monocytes 0.4 10^3/uL (0.0-0.9); ABS Neutrophils 7.4 10^3/uL (1.5-7.6); Hematocrit 29.4 % (35-45); Lymphocyte % 15.3 %; Mean Corpuscular Hemoglobin 30.6 pg (27-33); Mean Corpuscular Hgb Conc 34.1 g/dL (31-36); Mean Corpuscular Volume 89.7 fL (80-97); Mean Platelet Volume 7.4 fL (7.5-11.2); Platelet Count 311 10^3/uL (150-450); Red Blood Count 3.27 10^6/uL (3.63-4.92); Red Cell Distribution Width 15.8 % (12-17); White Blood Count 9.2 10^3/uL (3.8-11.8)
[2023-04-16] MEDS: Heparin 5000 UNITS/ML 1 mL VIAL SUBCUT SCH ×3 (06:15→22:44)
[2023-04-16 06:24] LABS: Calcium 9.1 mg/dL (8.6-10.3); Creatinine, Serum 1.82 mg/dL (0.51-0.95); Magnesium 1.9 mg/dL (1.9-2.7); Phosphorus 3.7 mg/dL (2.5-5.0); Potassium 4.4 mmol/L (3.5-5.0); eGFR CKD-EPI 27.8 (>60)
[2023-04-16] MEDS: Albuterol/Ipratropium NEB.SOL (2.5/0.5 MG) 3 ML NEB.SOLN INH SCH ×3 (07:28→19:36)
[2023-04-16] MEDS: Amoxicillin/Clavul 875/125 TAB (Augmentin 875 tab) PO SCH ×2 (08:58→22:41)
[2023-04-16] MEDS ORDERED: Isosorbide Mononit ER 30mg TAB PO SCH (09:00)
[2023-04-16] MEDS ORDERED: Insulin GLARGINE 100 un/ml 10 ml VIAL SUBCUT SCH (21:00)
[2023-04-17] MEDS ORDERED: Lactated Ringers 1000 ml BAG 1,000 ML IV ONE (04:00)
[2023-04-17] MEDS: Heparin 5000 UNITS/ML 1 mL VIAL SUBCUT SCH (05:42)
[2023-04-17 06:55] LABS: ABS Lymphocytes 0.9 10^3/uL (1.0-4.8); ABS Monocytes 0.1 10^3/uL (0.0-0.9); ABS Neutrophils 9.3 10^3/uL (1.5-7.6); ABS Nucleated RBC 0.01 10^3/ul; Hematocrit 32.4 % (35-45); Hemoglobin 10.9 g/dL (11.5-14.3); Lymphocyte % 9.1 %; Mean Corpuscular Hemoglobin 30.1 pg (27-33); Mean Corpuscular Hgb Conc 33.6 g/dL (31-36); Mean Corpuscular Volume 89.5 fL (80-97); Mean Platelet Volume 7.6 fL (7.5-11.2); Nucleated Red Blood Cells % 0.1 /100 WBC (0.0-0.4); Platelet Count 340 10^3/uL (150-450); Red Blood Count 3.63 10^6/uL (3.63-4.92); Red Cell Distribution Width 15.5 % (12-17); White Blood Count 10.3 10^3/uL (3.8-11.8)
[2023-04-17 07:05] LABS: Calcium 9.3 mg/dL (8.6-10.3); Creatinine, Serum 1.87 mg/dL (0.51-0.95); Potassium 4.9 mmol/L (3.5-5.0); eGFR CKD-EPI 26.9 (>60)
[2023-04-17] MEDS: Albuterol/Ipratropium NEB.SOL (2.5/0.5 MG) 3 ML NEB.SOLN INH SCH ×3 (07:25→19:24)
[2023-04-17] MEDS: Amoxicillin/Clavul 875/125 TAB (Augmentin 875 tab) PO SCH ×2 (08:13→20:15)
[2023-04-17] MEDS ORDERED: fentaNYL 100 mcg/2 ml 50 MCG/ML VIAL IV SLOW PU ONE (09:57)
[2023-04-17] MEDS ORDERED: Midazolam 10 mg/10 ml VIAL 1 mg/ml 10 ml VIAL (10 mg) IV SLOW PU ONE (09:57)
[2023-04-17] MEDS ORDERED: Heparin 2 UNITS/ML 1000 mls 2,000 ML IV ONE (10:52)
[2023-04-17] MEDS ORDERED: VERAPAMIL 2.5 MG/ML 2 ML VIAL ** 5 mg/2 ml ONE (10:52)
[2023-04-17] MEDS ORDERED: Midazolam 5 mg/5 ml VIAL 1 mg/ml 5 ml VIAL (5 mg) ONE (10:52)
[2023-04-17] MEDS ORDERED: fentaNYL 100 mcg/2 ml 50 MCG/ML VIAL ONE (10:52)
[2023-04-17] MEDS ORDERED: Heparin 1,000 UNIT/ML 10 ml (10,000 UNITS) CATHLAB/DIALYSIS ONE (10:52)
[2023-04-17] MEDS ORDERED: nitroGLYCERIN DRIP 25,000 MCG/250 ML BTL ONE (10:53)
[2023-04-17] MEDS ORDERED: Iodixanol 320 (CONTRAST) 100 ML SDV ONE ×2 (10:53→11:27)
[2023-04-17] MEDS ORDERED: Lidocaine 1% MPF 5 ML VIAL ONE (10:53)
[2023-04-17] MEDS ORDERED: NS 0.9% 1000 ml BAG 1,000 ML IV SCH (11:45)
[2023-04-17] MEDS ORDERED: Metoprolol Tartrate 5 mg VIAL 5 ml VIAL (1 mg/ml) ONE (13:36)
[2023-04-17 17:56] LABS: Glucose Confirmatory 416 mg/dL (70-100)
[2023-04-17] MEDS ORDERED: Insulin GLARGINE 100 un/ml 10 ml VIAL SUBCUT SCH (21:00)
[2023-04-18 06:43] LABS: Calcium 9.4 mg/dL (8.6-10.3); Creatinine, Serum 1.64 mg/dL (0.51-0.95); Potassium 4.5 mmol/L (3.5-5.0); eGFR CKD-EPI 31.5 (>60)
[2023-04-18] MEDS: Albuterol/Ipratropium NEB.SOL (2.5/0.5 MG) 3 ML NEB.SOLN INH SCH ×2 (07:24→13:23)
[2023-04-18] MEDS ORDERED: Dextrose 50% Syringe 50 ml 25 GM/50 ML SYRINGE IV PUSH PRN ×2 (07:35→14:36)
[2023-04-18] MEDS ORDERED: Heparin 5000 UNITS/ML 1 mL VIAL SUBCUT SCH (08:00)
[2023-04-18] MEDS: Amoxicillin/Clavul 875/125 TAB (Augmentin 875 tab) PO SCH (08:21)
[2023-04-18 11:58] LABS: Glucose Confirmatory 402 mg/dL (70-100)
[2023-04-18 13:57] VITALS: BP 171/76
[2023-04-18 14:29] LABS: Glucose Confirmatory 425 mg/dL (70-100)
== END 2023-04-18 15:27 | disposition home or self-care (01) | DRG 281 ==
LOC: ED 14:00 → EDHOLD 22:18 → SUATTDRO 22:18 → MEDTELE 04-15 07:20
PROVIDERS: ADMIT Hospitalist; ATTEND Hospitalist